=== PATIENT | male | born 1975 | race Caucasian/White ===

== ENCOUNTER 2017-12-03 17:16 | Emergency (ER) | payer OTHER ==
[~2017-12-03] VITALS: Ht 182.9 cm; Wt 127.0 kg
[~2017-12-03 17:16] MED LIST: BACTRIM DS TAB1 EACH PO; CHANTIX1 EACH PO; FARXIGA5 MG PO; IBUPROFEN 800800 M1 PO; KEFLEX500 MG PO; LIPITOR10 MG; LIPITOR10 MG PO; OSENI 12.5-151 EACH PO; VYVANSE10 MG PO
[2017-12-03] MEDS ORDERED: AMARYL4 MG PO (17:26)
[2017-12-03] MEDS ORDERED: TRADJENTA5 MG (17:26)
[2017-12-03] MEDS ORDERED: METFORMIN HCL500 MG PO (17:26)
[2017-12-03] MEDS ORDERED: PIOGLITAZONE15 MG (17:28)
[2017-12-03] MEDS ORDERED: CELEXA40 MG PO (17:28)
[2017-12-03] MEDS ORDERED: PROPRANOLOL 1010 MG PO (17:28)
[2017-12-03] MEDS ORDERED: VALSARTAN40 MG PO (17:29)
[2017-12-03] MEDS ORDERED: CLEOCIN HCL300 MG PO (17:36)
[2017-12-03 17:43] VITALS: BP 162/96
== END 2017-12-03 17:43 | disposition home or self-care (01) ==
LOC: M.ERS 17:16
DX: K08.89 Other specified disorders of teeth and supporting structures (principal); J44.9 Chronic obstructive pulmonary disease, unspecified; I10 Essential (primary) hypertension; E11.9 Type 2 diabetes mellitus without complications; E78.00 Pure hypercholesterolemia, unspecified; F90.9 Attention-deficit hyperactivity disorder, unspecified type; F17.200 Nicotine dependence, unspecified, uncomplicated

== ENCOUNTER 2018-10-26 19:54 | Inpatient (IN) | payer OTHER ==
[~2018-10-26] VITALS: Ht 182.9 cm; Wt 119.4 kg
[~2018-10-26 19:54] MED LIST changes: +AMARYL4 MG PO; +CELEXA40 MG PO; +CLEOCIN HCL300 MG PO; +METFORMIN HCL500 MG PO; +PIOGLITAZONE15 MG PO; +PROPRANOLOL 1010 MG PO; +TRADJENTA5 MG PO; +VALSARTAN40 MG PO
[2018-10-26 19:58] VITALS: BP 160/110
[2018-10-26] MEDS ORDERED: COZAAR 50 MG TA50 MG PO (20:10)
[2018-10-26 20:15] LABS: ABSOLUTE BASOPHILS 0.1 thou/uL (0.0-0.2); ABSOLUTE EOSINOPHILS 0.2 thou/uL (0.0-0.7); ABSOLUTE LYMPHOCYTES 3.3 thou/uL (0.8-5.3); ABSOLUTE MONOCYTES 0.7 thou/uL (0.0-1.2); ABSOLUTE NEUTROPHILS 2.7 thou/uL (1.6-8.1); BASOPHILS 1.2 %; EOSINOPHILS 3.3 %; HEMATOCRIT 46.5 % (42.0-52.0); HEMOGLOBIN 15.8 gm/dL (14.0-18.0); LYMPHOCYTES 47.1 %; MCH 30.3 pg (26.0-34.0); MCV 89.1 fL (80.0-100.0); MONOCYTES 10.1 %; MPV 8.7 fl. (7.2-11.1); NUCLEATED RBCS 0 /100WBC; PLATELET COUNT* 246 thou/uL (150-400); POLYS 38.3 %; RBC 5.22 mil/uL (4.50-6.00); RDW-CV 12.9 % (10.5-14.5)
[2018-10-26 20:26] LABS: ANION GAP 8 mmol/L (7-16); APTT 26.3 Seconds (25.0-31.3); BUN 14 mg/dL (7-18); CALCIUM 9.3 mg/dL (8.5-10.1); CHLORIDE 101 mmol/L (98-107); CO2 26 mmol/L (21-32); CREATININE 0.9 mg/dL (0.6-1.3); GLUCOSE 391 mg/dL (70-99); POTASSIUM 3.9 mmol/L (3.5-5.1); PROTIME 9.8 Seconds (9.20-11.50); SODIUM 135 mmol/L (136-145)
--- NOTE | 2018-10-26 20:35 | NUR ---
MANAGER OF MERCHANDISING HERE AND GETTING REPORT ON PATIENT
--- NOTE | 2018-10-26 20:39 | NUR ---
UNIFORM PATROL POLICE OFFICER ARRIVED
[2018-10-26 20:40] VITALS: BP 161/101
--- NOTE | 2018-10-26 20:41 | NUR ---
TO CATHLAB WITH DIRECTOR ORACLE, REGISTERED MEDICAL ASSISTANT AND CATHLAB RN. PATIENT TRANSPORTED ON [facility]
[2018-10-26 20:51] LABS: ALBUMIN 3.6 g/dL (3.4-5.0); ALKALINE PHOSPHATASE 85 U/L (46-116); CHOLESTEROL 226 mg/dL (<200); CK-MB MASS 1.2 ng/mL (<0.5-3.6); HDL CHOLESTEROL 34 mg/dL (>40); LDL CHOLESTEROL 152 mg/dL (<100); LIPASE 118 U/L (73-393); MAGNESIUM 1.7 mg/dL (1.8-2.4); NT-PRO BRAIN NAT PEPTIDE 10 pg/mL (<300); SERUM ASSESSMENT CLEAR; SGOT 19 U/L (15-37); SGPT 53 U/L (30-65); TC:HDL 6.6 Ratio (Not establshd); TOTAL BILIRUBIN 0.2 mg/dL (<0.1-1.0); TOTAL PROTEIN 7.6 g/dL (6.4-8.2); TRIGLYCERIDE 201 mg/dL (<150); TROPONIN-I LEVEL <0.06 ng/mL (<0.06); VLDL 40 mg/dL (<40)
[2018-10-26 21:46] VITALS: BP 131/81
[2018-10-26 22:06] VITALS: BP 119/80
[2018-10-26 23:00] VITALS: BP 116/83
--- NOTE | 2018-10-26 23:04 | NUR ---
Pt reports he is "feeling much better" following procedure (stent to circumflex). Sheath to R groin, VSS, on bedrest. Pt reports he has not taken any of his home medications for approx past two weeks. States his previous insurance has lapsed and he has not been able to get medications refilled. Reports he is a smoker (1 pack/day), but "currently working on becoming an ex-smoker. Pt pleasant and cooperative. VSS. specialist employee labor relations RN to remove sheath at approx [place]. Will continue to monitor.
[2018-10-27] VITALS (16 sets, daily range): BP systolic 120–139; BP diastolic 70–90
[2018-10-27 02:16] LABS: HEMATOCRIT 43.2 % (42.0-52.0); HEMOGLOBIN 14.7 gm/dL (14.0-18.0); MCH 30.3 pg (26.0-34.0); MCV 89.1 fL (80.0-100.0); MPV 8.8 fl. (7.2-11.1); RBC 4.84 mil/uL (4.50-6.00); RDW-CV 12.7 % (10.5-14.5); WBC 9.5 thou/uL (4.0-11.0)
[2018-10-27 02:35] LABS: ALBUMIN 3.3 g/dL (3.4-5.0); CALCIUM 8.4 mg/dL (8.5-10.1); CREATININE 0.8 mg/dL (0.6-1.3); POTASSIUM 3.9 mmol/L (3.5-5.1); TOTAL BILIRUBIN 0.4 mg/dL (<0.1-1.0); TOTAL PROTEIN 6.9 g/dL (6.4-8.2)
[2018-10-27 02:52] LABS: TROPONIN-I LEVEL 98.32 ng/mL (<0.06)
--- NOTE | 2018-10-27 05:20 | NUR ---
Pt off bedrest, R groin stable. VSS. Will continue to monitor.
--- NOTE | 2018-10-27 08:12 | CON ---
[address] [address] CONSULTATION Name: SETHENMANUEL T Room: [address] IN ..#: [id number] Admission: 10/26/18 Attend Phys: Michele Lara MD Discharge: Date of : 73 Report #: [id number] THIS REPORT FOR: //name// CC: Michele Romero DATE OF SERVICE: 10/26/2018 CARDIOLOGY CONSULTATION REASON FOR CONSULTATION: Chest pain. HISTORY OF PRESENT ILLNESS: This is a 43-year-old gentleman with a history of diabetes mellitus, hypertension, tobacco use, hypercholesterolemia, presenting with chest pain. About an hour and half prior to presentation to the ER, he developed substernal chest pain radiating across the chest. He felt numbness in both arms. He denies any shortness of breath or diaphoresis. He presented to the ER for an evaluation. The ECG reveals ST-elevation in the inferior leads. There is no history of fever, chills, nausea, or orthopnea. PAST MEDICAL HISTORY: Diabetes mellitus, hypertension, hypercholesterolemia, obesity and strong family history for premature CAD, his father with an [place] at age 48. ALLERGIES: None. MEDICATIONS AT HOME: Include atorvastatin 10 mg, Tradjenta, metformin, glimepiride propranolol 10 mg. SOCIAL HISTORY: One pack per day smoker. FAMILY HISTORY: Positive for premature CAD. REVIEW OF SYSTEMS: Unobtainable. PHYSICAL EXAMINATION: VITAL SIGNS: Blood pressure is 160/100, heart rate is 78 beats per minute. GENERAL APPEARANCE: An overweight male, in mild distress. HEENT: Normocephalic, atraumatic. Oral mucosa moist. NECK: Supple. LUNGS: Clear to auscultation. CARDIAC: Regular rate and rhythm. S1, S2 positive. ABDOMEN: Protuberant, soft, nontender. EXTREMITIES: No cyanosis, no edema. NEUROLOGIC: Alert and oriented [place] 3[place] [address] CONSULTATION Name: ENMANUEL ANN Room: [address] IN [facility]#: [id number] Admission: 10/26/18 Attend Phys: Michele Lara MD Discharge: Date of : 73 Report #: [id number] LABORATORY DATA: Laboratory values are pending. ECG reveals sinus rhythm with ST-elevation in the inferior leads with reciprocal ST-depression in the septal leads. ASSESSMENT AND PLAN: 1. Acute inferior wall myocardial infarction. He was treated with aspirin and Effient in the ER. He will be taken emergently to the cardiac laborer hide house. 2. Hypertension, will need antihypertensive medication. 3. Hypercholesterolemia, continue with statin therapy. 4. Tobacco use, complete smoking cessation is advised. 5. Diabetes mellitus, continue with medications. <ELECTRONICALLY SIGNED> By: Joao Claros MD 10/27/18 0812 2047 0046MD rosie Alexandra
--- NOTE | 2018-10-27 10:10 | CARD ---
[address] [address] CARDIAC CATH REPORT Name: ENMANUEL ANN Chad Room: [address] [facility]#: [id number] Admission: 10/26/18 Attend Phys: Michele Lara MD Discharge: Date of : 73 Report #: [id number] THIS REPORT FOR: //name// APPROVED REPORT Study performed: 10/26/2018 20:13:49 Patient Details Patient Status: ED Room #: The patient is a 43 year-old male Event Personnel Thao Diaz, Joe Palumbo Hintermaier, Elena RN RN, Joao Claros Rubber Mill Tender Procedures Performed Art Access - R femoral artery* Left Heart Cath w/or w/o Coronaries [id number] [facility] ED Revasc AMI Total/Sub Single CIRC C9606 AMIREVSING , FFR Indication STEMI (>0 to less than or equal to 6 hours), Dyspnea, Chest pain Risk Factors Obesity, Family History, Hypercholesterolemia, Hypertension, Diabetes Tobacco History () Procedure Narrative The patient was brought emergently to the Cardiac Catheterization Laboratory and was prepped and draped in a sterile manner. The right femoral was infiltrated with 2% Lidocaine subcutaneous anesthesia. A 6 fr sheath was inserted into the right femoral artery. Coronary angiography was performed using coronary diagnostic catheters. The right coronary system was accessed and visualized with a Diagnostic catheter. The left coronary system was accessed and visualized with a Diagnostic catheter. The left ventricle was accessed and visualized with a Diagnostic catheter. Left ventricular/Aortic Valve gradient assessed via catheter pullback. The patient tolerated the procedure well and there were no complications associated with the procedure. There was no hematoma. Intraoperative Conscious Sedation Fentanyl 50 mcg No sedation given[place] [address] CARDIAC CATH REPORT Name: ENMANUEL ANN Chad Room: [address] IN [facility].#: [id number] Admission: 10/26/18 Attend Phys: Michele Lara MD Discharge: Date of : 73 Report #: [id number] Dose: 2082 mGy Contrast Type and Amount: Visipaque 130 ml Coronary Angiography The patient's coronary anatomy is co- dominant. Diagnostic Cath Left Main This is a large caliber vessel, with no flow-limiting lesions. LAD This is a moderate size caliber vessel, traversing the anterior wall and wrapping around the apex. There is mild disease in the mid segment, less than 20%. Diagonal 1 This is a small-caliber vessel, patent with no flow-limiting lesions. Diagonal 2 This is a small-caliber vessel, patent with no flow-limiting lesions. Circumflex This is a codominant vessel, supplying multiple obtuse marginal arteries. OM1 This is a small-caliber vessel, patent with no flow-limiting lesions. OM2 This is a small-caliber vessel, patent with no flow-limiting lesions. OM3 This is a moderate size caliber vessel, supplying the inferolateral wall. There is a total occlusion in the proximal segment. Right Coronary This is a small to moderate size caliber vessel, patent with no flow-limiting lesions. R PDA This is a small-caliber vessel, patent with no flow-limiting lesions. Left Ventriculography The left ventricle is normal in size with decreased contractility. The left ventricular ejection fraction is estimated to be 40-45%. There is hypokinesis of the inferior wall. Hemodynamics The aortic pressure is 168/99 mmHg with a mean of 80 mmHg. The left ventricular pressure is 118/13 mmHg with a mean of mmHg. The left ventricular end diastolic pressure is 21 mmHg. There was no gradient across the aortic valve upon pullback. PCI Technique Lesion Anticoagulation was achieved with Angiomax. Patient was preloaded with effient. Percutaneous coronary intervention was performed on the third obtuse marginal artery. The [place] [address] CARDIAC CATH REPORT Name: ENMANUEL ANN Room: [address] IN [facility].#: [id number] Admission: 10/26/18 Attend Phys: Michele Lara MD Discharge: Date of : 73 Report #: [id number] intervention was 100% with COLUMBA 0 flow. A 6FR XB 3.5 100CM Guide Catheter was used to engage the ostium. A IG: Luge Wire 180 Interventional Guidewire was used to cross the lesion. BALLOON DILATION A Balloon catheter Mini Trek RX 2.0 X 15 was inserted and inflated up to 12.00atm for 21seconds. Additional Inflation: 12.00atm for 14seconds. STENT DEPLOYMENT A drug-eluting stent Resolute RX 2.5X30 was inserted and inflated up to 18.00atm for 18seconds. Final angiography reveals 0 % stenosis with COLUMBA 3 flow. Conclusion 1. Successful insertion of a drug-eluting stent into a moderate sized third obtuse marginal artery, supplying the inferolateral wall. 2. Patent LAD vessel with mild disease in the midsegment. 3. Mild to moderate segmental LV dysfunction. 4. Recommend aggressive risk factor management and dual antiplatelet therapy. Recommendations Smoking Cessation Cardiac Rehabilitation Referral Medications Administered Aspirin (any) Prasugrel <ELECTRONICALLY SIGNED> By: Joao Claros MD 10/27/18 1009 1009 1009Joao Claros MD /INF
--- NOTE | 2018-10-27 14:04 | EKG ---
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 : 1975 Requested By: Joao Claros Order Number: [id number] Shameka MD: Jae Jewell Measurements Intervals [place] Rate: 83 P: 7 VA: 183 QRS: 82 QRSD: 102 T: 78 QT: 386 QTc: 454 Interpretive Statements Sinus rhythm Inferoposterior infarct, acute (LCx) Lateral leads are also involved Baseline wander in lead(s) III,V1,V3,V4,V5,V6 No previous ECG available for comparison Electronically Signed On 10-27-2018 14:04:17 CDT by Jae Jeewll [email or web address] <ELECTRONICALLY SIGNED> By: Jae Jewell MD, FAC 10/27/18 1404 58 58 Jae Jewell MD, [facility] /EPI
--- NOTE | 2018-10-27 14:07 | EKG ---
[place] [address] ELECTROCARDIOGRAM REPORT Name: ENMANUEL ANN Room: [address] ADM IN .R.#: [id number] Admission: 10/26/18 Attend Phys: Michele Lara MD Discharge: Date of : 73 Report #: [id number] THIS REPORT FOR: //name// [facility] Test Date: 2018-10-26 Test Time: 22:24:50 Pat Name: ENMANUEL ANN Department: Room: [facility] Gender: M Tobacco Sizer: [id number] : 1975 Requested By: Thuan Trotter Order Number: [id number] MD: Jae Jewell Measurements Intervals [place] Rate: 81 P: 51 NE: 175 QRS: 82 QRSD: 107 T: 60 QT: 395 QTc: 459 Interpretive Statements Sinus rhythm Ventricular premature complex inferior injury pattern Electronically Signed On 10-27-2018 14:07:20 CDT by Jae Jewell [email or web address] <ELECTRONICALLY SIGNED> By: Jae Jewell MD, [facility] 10/27/18 1407 2224 23 Jae Jewell MD, FACC /EPI
--- NOTE | 2018-10-27 14:11 | EKG ---
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
--- NOTE | 2018-10-27 14:23 | 2DMMODE ---
[place] [address] 2 D/M-MODE ECHOCARDIOGRAM Name: ENMANUEL ANN Room: [address] IN [facility]#: [id number] Admission: 10/26/18 Attend Phys: Michele Lara, Discharge: Date of : 73 Date of Service: 10/27/18 1423 Report #: [id number] THIS REPORT FOR: //name// APPROVED REPORT Study performed: 10/27/2018 10:27:45 EXAM: Comprehensive 2D, Doppler, and color-flow Echocardiogram Patient Location: In-Patient Room #: 96 Status: 136 BSA: 2.41 HR: 96 bpm BP: 136/85 mmHg Rhythm: NSR Other Information Study Quality: Good Indications Acute GA 2D Dimensions IVSd: 10.75 (7-11mm) LVOT Diam: 21.36 (18-24mm) LVDd: 48.52 mm PWd: 10.24 (7-11mm) Ascending Ao: 34.83 (22-36mm) LVDs: 33.68 (25-40mm) Aortic Root: 32.61 mm Volumes Left Atrial Volume (Systole) LA ESV Index: 18.40 mL/m2 Aortic Valve AoV Peak Arley.: 1.27 m/s AO Peak Gr.: 6.46 mmHg LVOT Max P.22 mmHg AO Mean Gr.: 4.07 mmHg LVOT Mean P.88 mmHg LVOT Max V: 1.03 m/s AO V2 VTI: 22.73 cm LVOT Mean V: 0.62 m/s BAHMAN (VTI): 3.20 cm2 LVOT V1 VTI: 20.33 cm Mitral Valve E/A Ratio: 1.28 MV Decel. Time: 165.76 ms MV E Max Arley.: 0.93 m/[place] [address] 2 D/M-MODE ECHOCARDIOGRAM Name: ENMANUEL ANN Room: [address] IN ..#: [id number] Admission: 10/26/18 Attend Phys: Michele Lara, Discharge: Date of : 73 Date of Service: 10/27/18 1423 Report #: [id number] MV PHT: 48.07 ms MVA (PHT): 4.58 cm2 TDI E/Lateral E': 7.15 E/Medial E': 7.15 Medial E' Arley.: 0.13 m/s Lateral E' Arley.: 0.13 m/s Pulmonary Valve PV Peak Arley.: 0.92 m/s PV Peak Gr.: 3.38 mmHg Left Ventricle The left ventricle is normal size. mild inferior hypokinesis noted There is normal left ventricular wall thickness. Left ventricular systolic function is normal. The left ventricular ejection fraction is within the normal range. LVEF is 50-55%. The left ventricular diastolic function is normal. Right Ventricle The right ventricle is normal size. The right ventricular systolic function is normal. Atria The left atrium size is normal. The right atrium size is normal. Aortic Valve The aortic valve is normal in structure. No aortic regurgitation is present. There is no aortic valvular stenosis. Mitral Valve The mitral valve is normal in structure. There is no mitral valve regurgitation noted. No evidence of mitral valve stenosis. Tricuspid Valve The tricuspid valve is normal in structure. Unable to assess PA pressure. Trace tricuspid regurgitation. Pulmonic Valve The pulmonary valve is normal in structure. Trace pulmonic regurgitation. Great Vessels The aortic root is normal in size. IVC is normal in size and collapses >50% [place] [address] 2 D/M-MODE ECHOCARDIOGRAM Name: ENMANUEL ANN Room: [address] IN [facility]#: [id number] Admission: 10/26/18 Attend Phys: Michele Lara, Discharge: Date of : 73 Date of Service: 10/27/18 1423 Report #: [id number] Pericardium There is no pericardial effusion. <Conclusion> LVEF is 50-55%. mild inferior hypokinesis noted <ELECTRONICALLY SIGNED> By: Jae Jeewll MD, [facility] 10/27/18 1423 1423 142 Jae Jewell MD, [facility] /INF
--- NOTE | 2018-10-27 15:48 | NUR ---
10/27 Days: Patient downgraded and transferred to [facility] at this time. Patient continues to complain chest discomfort, the same type he had the last 5 days after hitting a pole, not the pain that brought him in for the STEMI. Patient took a [place] before leaving the floor. Otherwise unremarkable shift. Vitals stable, good appetite
--- NOTE | 2018-10-27 16:05 | NUR ---
Pt is A&O. Resides at home with . Active and independent. Pt wears a cpap at night. No hx of HH or SNF. CM discussed Pt not taking meds, Pt stated "we were having issues with the insurance, but it's all straightened out now." Supportive family in room. Following.
--- NOTE | 2018-10-27 16:27 | NUR ---
PATIENT TRANSFERED FROM ICU AT 1530. PATIENT UP IN CHAIR. AOX4. REPORTS CHEST PAIN RATED AT 4/10, BUT STATES IT FEELS MORE LIKE IT'S FROM THE CONTUSION TO HIS CHEST PRIOR TO STEMI INCIDENT. PROVIDED WITH TUNG SOTOMAYOR PER REQUEST. OREINTED TO ROOM. PATIENT DENIES NEEDS AT THIS TIME.
[2018-10-28] VITALS: BP 120/77
--- NOTE | 2018-10-28 02:07 | NUR ---
PT ALERT ORIENTED. UP AMBULATING IN ROOM AND MAX. PAIN IN CHEST FROM HITTING POLE AT WORK. TELEMETRY SHOWS SR.
[2018-10-28 04:00] VITALS: BP 138/88
[2018-10-28 05:02] LABS: HEMATOCRIT 41.8 % (42.0-52.0); HEMOGLOBIN 14.2 gm/dL (14.0-18.0); MCHC 33.9 g/dL (28.0-37.0); MCV 88.5 fL (80.0-100.0); MPV 8.7 fl. (7.2-11.1); RBC 4.72 mil/uL (4.50-6.00); RDW-CV 12.9 % (10.5-14.5); WBC 8.8 thou/uL (4.0-11.0)
[2018-10-28 05:41] LABS: CALCIUM 8.4 mg/dL (8.5-10.1); CREATININE 0.7 mg/dL (0.6-1.3); MAGNESIUM 1.7 mg/dL (1.8-2.4); POTASSIUM 3.7 mmol/L (3.5-5.1)
[2018-10-28 08:00] VITALS: BP 128/80
[2018-10-28 09:07] LABS: GLYCOHEMOGLOBIN (HGB A1C) 12.9 % (4.8-5.6)
[2018-10-28] MEDS ORDERED: LIPITOR40 MG PO (10:07)
[2018-10-28] MEDS ORDERED: ASPIR 8181 MG PO (10:07)
[2018-10-28] MEDS ORDERED: EFFIENT10 MG PO (10:07)
[2018-10-28] MEDS ORDERED: LOPRESSOR25 PO (10:07)
[2018-10-28] MEDS ORDERED: ZETIA10 MG PO (10:53)
[2018-10-28 12:00] VITALS: BP 120/81
[2018-10-28] MEDS ORDERED: NITROGLYCERIN0.4 MG SUBLING (14:10)
--- NOTE | 2018-10-28 14:36 | NUR ---
DISCHARGE NOTE - IV'S REMOVED. ALL BELONGINGS SENT WITH PT. REVIEWED INSTRUCTIONS WITH PT AND . NO QUESTIONS.
== END 2018-10-28 14:45 | disposition home or self-care (01) | DRG 247 ==
LOC: M.ERS 19:54 → M.ICU 21:32 → M.TBA-ER 21:32 → M.ICU 21:36 → M.2W 10-27 16:03
PROVIDERS: Family Medicine; Internal Medicine Cardiovascular Disease; ADMIT Internal Medicine
PROC: 4A023N7 Measurement of Cardiac Sampling and Pressure, Left Heart, Percutaneous Approach (ICD-10-PCS; principal; 2018-10-27)
PROC: B2151ZZ Fluoroscopy of Left Heart using Low Osmolar Contrast (ICD-10-PCS; principal; 2018-10-27)
PROC: 027034Z Dilation of Coronary Artery, One Artery with Drug-eluting Intraluminal Device, Percutaneous Approach (ICD-10-PCS; principal; 2018-10-27)
PROC: B2111ZZ Fluoroscopy of Multiple Coronary Arteries using Low Osmolar Contrast (ICD-10-PCS; principal; 2018-10-27)
DX: I21.19 ST elevation (STEMI) myocardial infarction involving other coronary artery of inferior wall (principal); I10 Essential (primary) hypertension; E11.9 Type 2 diabetes mellitus without complications; E78.00 Pure hypercholesterolemia, unspecified; F90.9 Attention-deficit hyperactivity disorder, unspecified type; J44.9 Chronic obstructive pulmonary disease, unspecified; F17.210 Nicotine dependence, cigarettes, uncomplicated; E66.9 Obesity, unspecified; I25.5 Ischemic cardiomyopathy; Z68.35 Body mass index [BMI] 35.0-35.9, adult; Z79.84 Long term (current) use of oral hypoglycemic drugs; Z79.899 Other long term (current) drug therapy; Z82.49 Family history of ischemic heart disease and other diseases of the circulatory system; Z71.6 Tobacco abuse counseling

== ENCOUNTER 2019-05-01 20:19 | Inpatient (IN) | payer OTHER ==
[~2019-05-01] VITALS: Ht 182.9 cm; Wt 129.7 kg
[~2019-05-01 20:19] MED LIST changes: +ASPIR 8181 MG PO; +COZAAR 50 MG TA50 MG PO; +EFFIENT10 MG PO; +LIPITOR40 MG PO; +LOPRESSOR25 PO; +NITROGLYCERIN0.4 MG SUBLING; +ZETIA10 MG PO
[2019-05-01 20:23] VITALS: BP 168/85
[2019-05-01 20:48] LABS: HEMATOCRIT 44.4 % (42.0-52.0); HEMOGLOBIN 15.4 gm/dL (14.0-18.0); MCHC 34.7 g/dL (28.0-37.0); MCV 89.2 fL (80.0-100.0); MPV 8.6 fl. (7.2-11.1); RBC 4.98 mil/uL (4.50-6.00); RDW-CV 12.6 % (10.5-14.5); WBC 8.7 thou/uL (4.0-11.0)
[2019-05-01 20:59] LABS: PROTIME 9.8 Seconds (9.20-11.50)
[2019-05-01 21:08] LABS: CALCIUM 9.5 mg/dL (8.5-10.1); POTASSIUM 4.1 mmol/L (3.5-5.1)
[2019-05-01 21:18] LABS: ALBUMIN 3.8 g/dL (3.4-5.0); TOTAL BILIRUBIN 0.2 mg/dL (<0.1-1.0); TOTAL PROTEIN 7.2 g/dL (6.4-8.2)
[2019-05-01 22:41] VITALS: BP 142/80
[2019-05-01 23:10] VITALS: BP 123/72
[2019-05-02 04:00] VITALS: BP 100/59
--- NOTE | 2019-05-02 07:47 | NUR ---
RECEIVED REPORT FROM MARKETING TRAFFIC MANAGERJIN. PATIENT BROUGHT UP TO FLOOR AT 2310. ASSESSMENT COMPLETED CHARTED. PATIENT ORIENTED TO ROOM, BED, CALL-LIGHT, AND HOSPITAL POLICY. FALL PRECAUTIONS IN PLACE. PATIENT DENIES ANY PAIN OR SOA. PATIENT IS NSR ON THE MONITOR. HOURLY ROUNDING IN PLACE FOR PATIENT SAFETY. CLWR.
[2019-05-02 08:00] VITALS: BP 136/81
[2019-05-02 09:26] LABS: CHOLESTEROL 124 mg/dL (<200); HDL CHOLESTEROL 32 mg/dL (>40); LDL CHOLESTEROL 74 mg/dL (<100); TC:HDL 3.9 Ratio (Not establshd); TRIGLYCERIDE 92 mg/dL (<150); VLDL 18 mg/dL (<40)
[2019-05-02 09:28] LABS: SERUM ASSESSMENT Clear
[2019-05-02 12:00] VITALS: BP 119/69
[2019-05-02 15:17] VITALS: BP 119/69
--- NOTE | 2019-05-02 16:05 | NUR ---
ASSUMED PT CARE AT 0700, PT A&O X4, VSS, NO C/O CHEST PAIN OR SOA NOTED, ASSOCIATE DEAN TRACING SINUS RHYTHM, FULL ASSESSMENT CHARTED. PT DISCHARGED HOME AT APPROX 1554, EDUCATED ON ALL DISCHARGE INSTRUCTIONS INCLUDING MEDICATIONS AND FOLLOW UP APPOINTMENTS. ASSOCIATE DEAN AND IV REMOVED, HOURLY ROUNDING COMPLETED.
[2019-05-03 04:09] LABS: GLYCOHEMOGLOBIN (HGB A1C) 9.5 % (4.8-5.6)
--- NOTE | 2019-05-03 12:16 | CON ---
[address] [address] CONSULTATION Name: ENMANUEL ANN Room: [address] IN M.R.#: [id number] Admission: 05/01/19 Attend Phys: Michele Lara MD Discharge: 05/02/19 Date of : 73 Report #: [id number] THIS REPORT FOR: //name// CC: Michele Romero INDICATION: Chest pain. HISTORY OF PRESENT ILLNESS: The patient is a 43-year-old gentleman with history of coronary artery disease. In October of this year, he was seen in the setting of myocardial infarction and found to have occlusion acutely of the proximal segment of a large obtuse marginal branch, for which he underwent coronary intervention. His post-myocardial infarction course was unremarkable. Cardiac risk factors include hypertension, dyslipidemia, tobacco use. The patient had left sternal chest pain last night after lifting a TV with a friend that persisted for approximately 4 hours. The patient was admitted to the Emergency Room during the initial episode of chest pain and observed overnight. The patient's cardiac enzymes are negative x 3. EKG showed sinus rhythm without acute ST or T-wave abnormality. At the time of interview, the patient's pain is resolved. He has not been having any progressive exertional symptoms. He is without other cardiac complaint at this time. PAST MEDICAL HISTORY: 1. Inferior wall myocardial infarction, 10/2018 status post drug-eluting stent placement. 2. Hyperlipidemia. 3. Type 2 diabetes mellitus. 4. Hypertension. 5. Chronic tobacco use. 6. Obesity. FAMILY HISTORY: Positive for premature atherosclerotic coronary artery disease. SOCIAL HISTORY: The patient smokes a pack of cigarettes daily. He does not drink alcohol. ALLERGIES: None. HOME MEDICATIONS: Aspirin 81 mg daily, atorvastatin 40 mg at bedtime, Celexa 40 mg daily, Zetia 10 mg daily, glimepiride 4 mg daily, Cozaar 50 mg daily, metformin 1000 mg b.i.d., Nitrostat p.r.n., pioglitazone 15 mg daily, Effient 10 mg daily. PHYSICAL EXAMINATION: VITAL SIGNS: Stable. Blood pressure 123/72, pulse 83 and regular. GENERAL: This is a moderately obese, pleasant white male, [place] [address] CONSULTATION Name: ENMANUEL ANN Room: [address]#: [id number] Admission: 05/01/19 Attend Phys: Michele Lara MD Discharge: 05/02/19 Date of : 73 Report #: [id number] and affect appropriate. HEENT: The patient wears glasses. Extraocular muscles intact. Mucous membranes are moist. NECK: Shows no jugular venous distention. There are no carotid bruits. CHEST: Reveals clear lung murray without wheezes, rales or rhonchi. CARDIOVASCULAR: Reveals a regular rhythm without gallop or murmur. ABDOMEN: Reveals a protuberant abdomen, soft and nontender. Bowel sounds present. EXTREMITIES: Show no edema. Peripheral pulses palpable. SKIN: Warm and dry. A 12-lead EKG shows sinus rhythm with no significant ST or T-wave abnormality. LABORATORY DATA: Labs are reviewed. Sodium 139, potassium 4.1, chloride 103, bicarbonate 25, BUN 13, creatinine 1.0, serum glucose 215. LFTs within normal limits. Troponins less than 0.06 on 3 separate occasions. NT-proBNP 10. Total cholesterol 124, triglycerides 92, HDL 32, LDL 74. White blood cell count 8.7, hemoglobin 15.4, platelet count 257,000. Chest x-ray shows no acute pulmonary abnormality. IMPRESSION AND RECOMMENDATIONS: 1. Atypical prolonged chest pain with negative enzymes and normal EKG. Doubt this represents acute coronary syndrome. Possibly gastroesophageal reflux disease. Recommend p.r.n. treatment. 2. Coronary artery disease, presently appears stable. He is on appropriate medicines as outlined above. 3. Hyperlipidemia. Continue statin agent at current goal. 4. Hypertension. Blood pressure adequately controlled. 5. Smoking cessation advised. The patient appears stable from a cardiac standpoint. Okay to discharge from a cardiac standpoint. <ELECTRONICALLY SIGNED> By: Kanu Arreaga MD, FACC 05/03/19 1216 1104 1522Micconrado Arreaga MD, FACC /nt
--- NOTE | 2019-05-03 12:46 | EKG ---
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
== END 2019-05-02 15:54 | disposition home or self-care (01) | DRG 303 ==
LOC: M.ERS 20:19 → M.TBA-ER 21:36 → M.2W 23:11
PROVIDERS: Emergency Medicine; ADMIT Internal Medicine
DX: I25.118 Atherosclerotic heart disease of native coronary artery with other forms of angina pectoris (principal); I10 Essential (primary) hypertension; E11.9 Type 2 diabetes mellitus without complications; E78.00 Pure hypercholesterolemia, unspecified; F17.210 Nicotine dependence, cigarettes, uncomplicated; E78.5 Hyperlipidemia, unspecified; E66.9 Obesity, unspecified; I25.5 Ischemic cardiomyopathy; F90.9 Attention-deficit hyperactivity disorder, unspecified type; I25.2 Old myocardial infarction; Z95.5 Presence of coronary angioplasty implant and graft; Z87.01 Personal history of pneumonia (recurrent); Z88.1 Allergy status to other antibiotic agents; Z79.899 Other long term (current) drug therapy; Z79.84 Long term (current) use of oral hypoglycemic drugs; Z68.38 Body mass index [BMI] 38.0-38.9, adult; Z82.49 Family history of ischemic heart disease and other diseases of the circulatory system; Z79.82 Long term (current) use of aspirin; Z71.6 Tobacco abuse counseling

== ENCOUNTER 2020-03-03 15:14 | Emergency (ER) | payer OTHER ==
[~2020-03-03] VITALS: Ht 182.9 cm; Wt 113.0 kg
[2020-03-03 15:57] LABS: INFLUENZA A ANTIGEN Negative (Negative); INFLUENZA B ANTIGEN Negative (Negative)
[2020-03-03 16:41] VITALS: BP 132/70
== END 2020-03-03 16:43 | disposition home or self-care (01) ==
LOC: M.ERS 15:14
PROVIDERS: Physician Assistant
DX: U07.1 COVID-19 (principal); Z88.1 Allergy status to other antibiotic agents